=== PATIENT | male | born 1955 | race Caucasian/White ===

== ENCOUNTER → 2023-09-30 | Outpatient (CLI) | payer OTHER, MEDICARE, SELFPAY ==
--- NOTE | 2023-09-30 07:57 | MRI_ITS ---
EXAMINATION: MR Prostate WO/W Contrast COMPARISON: None CLINICAL HISTORY: 68-year-old man with elevated PSA Most recent PSA = 6.6 ng/ml; PSA date = 07/23/2023 TECHNIQUE: Standard prostate MR protocol was used before and after administration of 18 cc of IV Clariscan. FINDINGS: Prostate volume: 60 cc PSA density: 0.1 ng/ml2 Post-biopsy hemorrhage: None Multiparametric MR evaluation: Heterogeneous appearance of the central gland is consistent with benign prostatic hyperplasia. Heterogeneous appearance of the peripheral gland concerning for prostatitis. Lesion 1: LOCATION - 1.3 x 0.9 x 0.6 cm mildly T2 hypointense ill-defined mass in the right anterior transitional zone at mid gland. T2 - 3 DWI - 3 DCE - inconclusive Overall PI-RADS v2 score = 3 Capsular margin and neurovascular bundle: Not involved Seminal vesicles: Not involved. Lymph nodes: No lymphadenopathy in the field of view. Bones: No suspicious lesions in the field of view. MRI/Pelvis W/WO Contrast IMPRESSION: 1.3 cm PI-RADS 3 lesion in the right anterior TZ at mid gland. - No evidence of macroscopic extracapsular extension. - No evidence of seminal vesicle invasion. - No lymphadenopathy. - No suspicious bone lesions. Benign prostatic hyperplasia with probable prostatitis. Electronically Signed: Jonah Rico MD at 21:12 EST ,
[2023-09-30 08:37] LABS: CREATININE FINGERSTICK 1.1 mg/dL (0.70-1.30); EGFR FINGERSTICK > 60.0000 mL/min (>60)
== END | disposition home or self-care (01) ==
PROVIDERS: PCP Family Medicine; Referring Provider Family Medicine; Visit Provider Family Medicine
DX: R97.20 Elevated prostate specific antigen [PSA] (principal)
CPT/HCPCS: 72197; A9575